=== PATIENT | female | born 1980 | race Caucasian/White ===

== ENCOUNTER 2016-07-28 12:02 | Observation (INO) | payer OTHER ==
[2016-07-28] MEDS ORDERED: FAMOTIDINE 10 MG/ML 2ML VIAL ONE (13:54)
[2016-07-28] MEDS ORDERED: METHYLPRED SOD SUCCINATE 125 MG VIAL ONE (13:54)
[2016-07-28] MEDS ORDERED: DIPHENHYDRAMINE HCL 50 MG/1 ML VIAL ONE (13:54)
[2016-07-28] MEDS ORDERED: EPINEPHRINE 1 MG/ML 1ML AMP ONE (13:54)
[2016-07-28 14:07] LABS: ABSOLUTE NEUTROPHIL COUNT 8.5 K/mm3 (1.8-7.7); BASO % 0.3 % (0.2-1.0); EOS # 0.1 (0.0-0.5); EOS % 0.5 % (0.9-2.9); HEMATOCRIT 40.3 % (37.0-47.0); HEMOGLOBIN 13.8 gm/l (12.0-16.0); IMM NEUT # 0.1 K/mm3 (0-0.2); IMM NEUT% 0.5 % (0-1); LYMPH # 1.5 (1.0-4.8); LYMPH % 14.5 % (15-45); MEAN CORPUSCULAR HEMOGLOBIN 30.8 pg (27.0-31.0); MEAN CORPUSCULAR HGB CONC 34.2 g/dl (33.0-37.0); MEAN PLATELET VOLUME 9.3 fl (7.4-10.4); MONO # 0.3 (0.0-0.8); MONO % 2.9 % (4-12); NEUT % 81.3 % (43-75); PLATELET COUNT 231 K/mm3 (130-400); RED CELL DISTRIBUTION WIDTH 12.9 % (11.5-14.5)
[2016-07-28 14:27] LABS: ALB/GLOB RATIO 1.5 (>1.0); ALBUMIN 4.4 gm/dL (3.5-5.7); CALCIUM 9.2 mg/dL (8.6-10.3)
[2016-07-28] MEDS ORDERED: LACTATED RINGERS 1,000 ML ONE (14:46)
--- NOTE | 2016-07-28 14:52 | RAD ---
Exam: Two-view chest COMPARISON: None INDICATION: Cough and congestion. Vomiting. FINDINGS: PA and lateral views of the chest were obtained. Cardiac silhouette is within normal limits. Lungs are well-inflated. Subtle asymmetric opacity projects within the right upper lobe which is felt to be related to the first rib and. There is no focal airspace disease or pleural effusion. Bones of the chest wall within normal limits. Stent and possible embolization coils are noted within the upper abdomen. IMPRESSION: No acute pulmonary process.
[2016-07-28 15:35] VITALS: BMI 23.3
[2016-07-28] MEDS ORDERED: MAGNESIUM HYDROXIDE 30 ML UDCUP PO PRN (17:39)
[2016-07-28] MEDS ORDERED: SODIUM CHLORIDE 0.9% 100 ML IV PRN (17:39)
[2016-07-28] MEDS ORDERED: ACETAMINOPHEN 325 MG TABLET PO PRN (17:39)
[2016-07-28] MEDS ORDERED: BISACODYL 10 MG SUP PR PRN (17:39)
[2016-07-28] MEDS ORDERED: MENTHOL/CETYLPYRD 1 EACH LOZENGE PO PRN (17:39)
[2016-07-28] MEDS ORDERED: BISACODYL 5 MG TABLET.EC PO PRN (17:39)
[2016-07-28] MEDS ORDERED: BLISTEX LIPSTICK 1 EACH TP PRN (17:39)
[2016-07-28] MEDS ORDERED: ONDANSETRON 4 MG/2ML 2 ML VIAL IV PRN (17:44)
[2016-07-28] MEDS ORDERED: SODIUM CHLORIDE 0.9% 1,000 ML IV SCH (17:45)
[2016-07-28] MEDS ORDERED: PUMP TUBING ONE (17:55)
--- NOTE | 2016-07-28 18:30 | US ---
ABDOMINAL ULTRASOUND HISTORY: Vomiting, history of renal artery stenting Transabdominal sonography was performed. COMPARISON: None. FINDINGS: LIVER: 14.1 cm cm in length. No focal lesions noted. GALLBLADDER: 8.8 cm in length, wall thickness 1.8 mm. No stones or sludge. COMMON BILE DUCT: 3 mm in maximal caliber. PANCREAS: Limited evaluation of pancreatic tail. Minimal prominence of pancreatic duct. SPLEEN: No focal lesions. Volume of 250 cc. KIDNEYS: 11.5 cm in length on the right, 10.5 cm in length on the left. No collecting system dilatation noted. AORTA: 2.2 cm in maximal caliber. INFERIOR VENA CAVA: Patent. FREE FLUID: None. IMPRESSION: Limited evaluation of the pancreas, minimal prominence of pancreatic duct. Otherwise unremarkable abdominal ultrasound. Specifically, normal appearance of the gallbladder. No ascites. A voicemail message was left for Dr. Palomino of the hospitalist clinical service on 07/28/2016 1825 hours.
[2016-07-28] MEDS: D5 1/2NS with 20 mEq KCL 1,000 ML IV SCH (19:15)
[2016-07-28 19:26] LABS: LIPASE < 3 U/L (11-82)
[2016-07-28 19:46] LABS: URINE BILIRUBIN NEGATIVE (NEGATIVE); URINE BLOOD NEGATIVE (NEGATIVE); URINE GLUCOSE (UA) NEGATIVE (NEGATIVE); URINE LEUKOCYTE ESTERASE NEGATIVE (NEGATIVE); URINE NITRITE NEGATIVE (NEGATIVE); URINE PROTEIN NEGATIVE (NEGATIVE); URINE UROBILINOGEN NORMAL (0-1 mg/dl)
[2016-07-28 19:49] LABS: URINE APPEARANCE CLEAR; URINE COLOR YELLOW
[2016-07-28 19:54] LABS: URINE BACTERIA 0; URINE EPITHELIAL CELLS 0 /hpf; URINE RBC 0 /hpf; URINE WBC 0-2 /hpf
[2016-07-28] MEDS ORDERED: DIPHENHYDRAMINE HCL 50 MG/1 ML VIAL IV PRN (20:00)
[2016-07-28] MEDS: DOCUSATE SODIUM 100 MG CAPSULE PO SCH (21:08)
[2016-07-28] MEDS ORDERED: FAMOTIDINE 10 MG/ML 2ML VIAL IV SCH (23:00)
[2016-07-29] MEDS: D5 1/2NS with 20 mEq KCL 1,000 ML IV SCH (02:58)
[2016-07-29 06:45] LABS: ABSOLUTE NEUTROPHIL COUNT 11.1 K/mm3 (1.8-7.7); BASO % 0.2 % (0.2-1.0); EOS % 0.1 % (0.9-2.9); HEMATOCRIT 36.1 % (37.0-47.0); HEMOGLOBIN 12.3 gm/l (12.0-16.0); IMM NEUT # 0.1 K/mm3 (0-0.2); IMM NEUT% 0.5 % (0-1); LYMPH # 2.6 (1.0-4.8); LYMPH % 17.7 % (15-45); MEAN CELL VOLUME 89.6 fl (81.0-99.0); MEAN CORPUSCULAR HEMOGLOBIN 30.5 pg (27.0-31.0); MEAN CORPUSCULAR HGB CONC 34.1 g/dl (33.0-37.0); MEAN PLATELET VOLUME 9.8 fl (7.4-10.4); MONO # 0.8 (0.0-0.8); MONO % 5.8 % (4-12); NEUT % 75.7 % (43-75); PLATELET COUNT 228 K/mm3 (130-400); RED CELL DISTRIBUTION WIDTH 12.7 % (11.5-14.5)
[2016-07-29 07:01] LABS: ALB/GLOB RATIO 1.5 (>1.0); ALBUMIN 3.9 gm/dL (3.5-5.7); CALCIUM 8.9 mg/dL (8.6-10.3)
[2016-07-29 07:16] VITALS: BP 115/72
--- NOTE | 2016-07-29 07:57 | PDOC43 ---
- Subjective Chief Complaint: Vomiting Patient reports no further vomiting. Ate dinner last night, did fine. No abdominal pain. No respiratory c/o. No itching, other sx. - Objective Vital Signs Temperature 98.9 F 07/29/16 07:16 Pulse Rate 98 07/29/16 07:16 Respiratory Rate 12 07/29/16 07:16 Blood Pressure 115/72 07/29/16 07:16 O2 Saturation by Pulse Oximetry 96 07/29/16 07:16 Oxygen Delivery Method Room Air Oxygen Flow Rate 0 Vital Signs Last 12 Hours Temp Pulse Resp BP Pulse Ox 07/29/16 07:16 98.9 F 98 12 115/72 96 07/29/16 03:00 97.8 F 92 12 129/77 98 07/28/16 23:00 98.2 F 95 16 119/80 99 Intake and Output 07/27/16 07/28/16 07/29/16 23:59 23:59 23:59 Intake Total 1000 3013 Output Total 1675 750 Balance -675 2263 General: Alert, Cooperative, Other (Disappointed about result of U/S suggesting miscarriage) HEENT: Atraumatic Lungs: Clear to Auscultation Bilaterally, Normal Air Movement Cardiovascular: Regular Rate and Rhythm Abdomen: Soft, Normal Bowel Sounds, Non-Distended, No Tenderness, No Rebounding , No Involuntary Guarding, No Distention Extremities: No Edema Skin: Normal Color Neurological: Normal Speech Psych/Mental Status: Other (Sl tearful about suspected miscarriage.) Laboratory 07/29/16 05:19 07/29/16 05:19 07/29/16 05:19 RBC 4.03 L Estimated GFR 113 H Laboratory Tests 07/28/16 07/29/16 13:50 05:19 Beta HCG, Qual Positive Beta HCG, Quant Pending Current Medications: Current meds reviewed in EMR. Active Medications Acetaminophen (Tylenol) 650 mg PO Q6H PRN PRN Reason: Pain or Temperature > 100.5 F Benzocaine/Menthol (Cepacol) 1 each PO PRN PRN PRN Reason: Sore Throat Bisacodyl (Dulcolax) 10 mg MD DAILY PRN PRN Reason: Constipation Bisacodyl (Dulcolax) 5 mg PO DAILY PRN PRN Reason: Constipation Diphenhydramine HCl (Benadryl) 50 mg IV Q6H PRN PRN Reason: Itching Docusate Sodium (Colace) 100 mg PO BID [facility] Last Admin: 07/28/16 21:08 Dose: 100 mg Famotidine (Pepcid) 20 mg IV Q12H [facility] Last Admin: 07/29/16 00:58 Dose: 20 mg Potassium Chloride/Dextrose/Sod Cl (D51/2ns With 20 Meq Kcl) 1,000 mls @ 125 mls/hr IV .Q8H [facility] Last Admin: 07/29/16 02:58 Dose: 125 mls/hr Sodium Chloride (Sodium Chloride 0.9%) 100 mls @ 25 mls/hr IV PRN PRN PRN Reason: Flush Magnesium Hydroxide (Milk Of Magnesia) 30 ml PO DAILY PRN PRN Reason: Constipation Ondansetron HCl (Zofran) 4 mg IV Q4H PRN PRN Reason: Nausea/Vomiting Petrolatum/Paraffin/Mineral Oil (Blistex) 1 each TP PRN PRN PRN Reason: Dry and/or chapped lips Sodium Chloride (Normal Saline 10ml Flush) 10 ml IV Q8HR [facility] Last Admin: 07/29/16 04:39 Dose: Not Given Sodium Chloride (Normal Saline 10ml Flush) 10 ml IV PRN PRN Sodium Chloride (Normal Saline 10ml Flush) 10 - 50 ml IV PRN PRN PRN Reason: IV Flush - Problems: Assessment/Plan (1) Vomiting Qualifiers: Vomiting type: bilious vomiting Nausea presence: with nausea Qualifier Code: (R11.14) Bilious vomiting Status: AcuteAssessment/Plan: Suspect cause was related to spontaneous miscarriage. Now reported improved. Lab not remarkable; elevated WBC suspect due to steroid administration in ED Amylase, lipase, LFTs, U/S, UA unrem +HCG may be a factor (2) Hypertension Qualifiers: Hypertension type: renovascular hypertension Qualifier Code: (I15.0) Renovascular hypertension Status: ChronicAssessment/Plan: Stable, BP quite good today. (3) Renal artery stenosis, morongo Status: ChronicAssessment/Plan: stented. U/S did not show significant abnormality. UA unrem. (4) Ulcerative colitis Qualifiers: Ulcerative colitis location: unspecified ulcerative colitis location Digestive disease complication type: without complication Qualifier Code: ( K51.90) Ulcerative colitis, unspecified, without complications Status: ChronicAssessment/Plan: Reported controlled on Humira, mesalamine. (5) Elevated serum hCG Status: AcuteAssessment/Plan: Noted, Pelvic u/s result most consistent with miscarriage, no intrauterine gestational sac seen. Quant HCG pending this am, discussed follow up HCG in 48 hrs; she reports she will be back in [place] then. Discussed seeking medical attention if having abdominal pain, severe bleeding. VTE Prophylaxis Contraindications: Drug treatment not indicated Disposition: Anticipate return to home.
[2016-07-29] MEDS: DOCUSATE SODIUM 100 MG CAPSULE PO SCH (08:14)
--- NOTE | 2016-07-29 08:45 | US ---
OB ULTRASOUND LESS THAN 14 WEEKS HISTORY: Positive beta hCG, vaginal bleeding, uncertain dates. 4 weeks 4 days by last menstrual period. Transabdominal and transvaginal obstetric ultrasound was performed. FINDINGS: INTRAUTERINE GESTATION: None identified. ENDOMETRIAL THICKNESS: 6 mm. Echogenic foci with minor shadowing measuring up to 6 mm in size, perhaps related to dystrophic calcifications. UTERUS: 7.5 x 5.2 x 3.0 cm. RIGHT OVARY: 3.5 x 2.4 x 1.9 cm. LEFT OVARY: 3.2 x 2.7 x 1.7 cm. FOCAL ADNEXAL LESIONS: Hypoechoic complex cystic lesion of the right ovary, 1.3 cm in size OVARIAN BLOOD FLOW: Documented bilaterally. FREE FLUID: Minor right adnexal free fluid. IMPRESSION: 1. Intrauterine gestation is not identified; considerations include early intrauterine gestation in spontaneous . Ectopic is not excluded. Recommend follow-up assessment with imaging and/or beta hCG evaluation. 2. Suspect 1.3 cm hemorrhagic cyst of the right ovary. Minor adjacent free fluid. 3. Echogenic foci of the endometrium may reflect dystrophic calcifications. Preliminary report relayed to the Emergency Medicine medical service by Dr. Villegas on 07/28/2016 at 2347 hours.
--- NOTE | 2016-07-29 09:18 | HP ---
LANDY SCHNEIDER [id number] DATE OF ADMISSION: July 28, 2016 CHIEF COMPLAINT: Vomiting. HISTORY OF PRESENT ILLNESS: The patient is a 36-year-old female with a history of renovascular hypertension who has developed an upper respiratory infection in the last week. She had been treating herself with guaifenesin and more recently took a dose of oxycodone last night due to severe menstrual cramps but she developed vomiting at 8 a.m. the day of admission after having a poor night of sleep. She noted some itching and sweating and was not getting better despite the vomiting, so came in to the emergency department. She was noted to have some facial swelling but no respiratory compromise. She also noted some speckly rash on her face, neck and upper chest attributing this to vomiting hard. Her emesis had some bile but no blood noted. She has had no diarrhea. She has had some chills but her temperature has been normal. She had no tongue swelling. Her only respiratory complaint was her regular cold symptoms she has been having for the last week. She notes a little bit of difficulty taking a deep breath, but this has not changed over the last week. She received epinephrine, solumedrol, famotidine and Benadryl in the emergency department and has not had any vomiting now in the last five hours. Patient states the itching is resolved. She notes being a little sleepy from the medicines. Symptoms are different from the previous time when she had renal artery infarction. PAST MEDICAL HISTORY: 1. 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 She states her last CT was two weeks ago and was okay. 2. She has not had any abdominal pain similar to those times. 3. She has a history of hypertension and has been on lisinopril but stopped two or three weeks ago. 4. She has a history of ulcerative colitis and has been on Humira and mesalamine but does not think the Humira is helping any. Her last dose was almost two weeks ago. PAST SURGICAL HISTORY: 1. Renal artery stent placement, 2015. 2. She has had a colonoscopy last May. ALLERGIES: NO KNOWN DRUG ALLERGIES. CURRENT MEDICATIONS: She takes: 1. Humira 80 mg every two weeks in a tapering dose. 2. Mesalamine. She takes a suppository twice daily. 3. She takes a vitamin. 4. She has also been taking Dayquil, Nyquil and oxycodone for heavy menses. She always tolerated the oxycodone fine before. Her last dose was 11 p.m. and her vomiting did not start until 8 a.m. SOCIAL HISTORY: She has a history of smoking but quit April 25, 2016. Alcohol, she reports four or five drinks every two weeks. She is visiting from [place] after her grandmother passed on hoping to help her mom. She has a boyfriend. She has a 19-year-old daughter who lives separately. She does not have a mu-ism affiliation. Hobbies include reading. 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 FAMILY HISTORY: Father is 61. He has a history of cancer involving the throat and melanomas. Mom is 62 and has hypertension and asthma. Daughter has no major medical problems. REVIEW OF SYSTEMS: Eyes have been okay. Ears have been somewhat plugged recently attributed to her cold. Nose has been a plugged recently. Mouth has been a little dry. Teeth are okay. Neck is okay. Lungs, she has had some cough which has not been productive. Her chest x-ray in the emergency department was unremarkable. She has had no heart complaints. She had the vomiting noted but no pain like before when she had her kidney problem. She has had no diarrhea. Last bowel movement was a couple of days ago. She has had no abdominal operations. No urinary complaints. Last menstrual period started yesterday. Legs have been okay. Arms have been okay. Rash, she states not at this time but most of the rash she has at this time is on the trunk and face and is not particularly itchy. No stroke history. Mood has been okay. She does not have an advanced directive. She has a little bit of headache but her blood pressure has not been particularly elevated. She has not been on any antiinflammatories. She has had no respiratory difficulties, and she states her facial swelling was mostly in the cheeks as if somebody had taken prednisone. PHYSICAL EXAMINATION: VITAL SIGNS: Blood pressure is 152/94, pulse 97, respirations 20, 100% saturation on room air, temperature 98.8. HEENT: Normocephalic, atraumatic. Eyes are unremarkable. Ears are normal. Tympanic membranes are unremarkable without effusion or erythema. Nose is normal, no discharge is evident. Septum intact and unremarkable. Mouth is normal, dentition very good. No significant swelling is noted. NECK: Is unremarkable other than a scattered petechial rash noted on the neck and upper chest consistent with her history of straining hard while vomiting. CHEST: Lungs are clear to auscultation bilaterally. CARDIOVASCULAR: Regular rate and rhythm to slightly tachycardiac but without a murmur. ABDOMEN: Is soft, nontender, nondistended. Bowel sounds are normal. There is no rebound, no guarding, no masses, no tenderness. Small tattoo is noted on the left lower quadrant. There is no scarring noted. Negative Parra's sign noted. BREAST: Exam is deferred. GENITOURINARY: Exam is deferred. EXTREMITIES: No clubbing, cyanosis or edema. No rashes noted, no ulcerations noted. Pulses are good throughout. Color is good. NEUROLOGIC: Cranial nerves are intact. Speech is clear, and she answers appropriately. SKIN: With scattered petechiae noted in the neck and upper chest. LABORATORY STUDIES: White count 10.5, hemoglobin 13.8, platelets 231, sodium 134, potassium 3.9, chloride 104, CO2 25, BUN 13, creatinine 0.8, glucose 101, AST 16, ALT 17, alkaline phosphatase 54, albumin 4.4, globulin 2.9. DIAGNOSTIC IMAGING STUDIES: Chest x-ray is read as no acute cardiopulmonary disease. Stents and possible embolization coils are noted in the upper abdomen. ASSESSMENT AND PLAN: 1. Vomiting. Etiology initially thought to be anaphylaxis but she does not sound particularly urticarial but certainly is petechial at this time. Mucosa appears to be normal, no swelling, no respiratory complaints, no hypotension noted anytime in the emergency room. We will be checking abdominal ultrasound. We will check lipase, amylase, troponin and check a urinalysis. We will observe tonight and reassess in the morning. 2. History of renal artery stenosis with stenting. We will be checking an abdominal ultrasound and monitor blood pressure. She could be a candidate for labetalol although this might be a concern if we were going to use additional epinephrine for her, so may consider alternative medications if systolic blood pressure goes above 160. 3. History of ulcerative colitis reported to be stable. Exam was not suggestive of any significant symptoms, no obstruction. Patient not sure about effect of Humira and now is about two weeks out from her last dose. 4. Hypertension with renovascular component. Previously had been on lisinopril but has been off for the last several weeks so this would be less likely as a contributor to anaphylaxis. Could consider labetalol if is a concern or consider other calcium channel mendy if further adrenaline thought to be needed, although this would seem unlikely in the setting of elevated blood pressures. 5. History of smoking. Quit since April. Congratulated on this. 6. Consideration for . We will be checking an HCG. 7. Venous thrombosis prophylaxis, anticipate low risk ambulatory patient. 8. Code status: FULL CODE. Cc: Karena Suarez M.D. Dave Merino M.D. Dave Lopez M.D.
--- NOTE | 2016-07-29 15:47 | DS ---
LANDY SCHNEIDER [id number] DATE OF ADMISSION: July 28, 2016 DATE OF DISCHARGE: July 29, 2016 DISCHARGE DIAGNOSES: Are: 1. Episode of vomiting suspect related to very early miscarriage. 2. Previous left kidney infarction with a history of renal artery stenting. 3. History of ulcerative colitis on Humira and mesalamine. 4. History of hypertension. 5. Recent upper respiratory illness. REASON FOR ADMISSION: The patient is 36-year-old female who has a history of renovascular hypertension and had recently stopped her lisinopril with an eye toward contemplating . She had noted she was late for her period approximately five or six days prior to admission but had taken a home test that was negative. She had then come down to [place] to help her mom with care for her grandmother's arrangements and noted that she then started having some spotting and felt like she was going to have her period although it was more severe than usual. She had taken an oxycodone left over from her previous medical procedures and some guaifenesin to treat upper respiratory illness and had gone to bed. She had not taken any antiinflammatories. She woke up about 8:00 in the morning and noted that she was having vomiting. She denies abdominal pain and had vomited so hard, she developed a rash on her upper torso. She had also felt some feeling that her face was full and she presented to the emergency department here. On admission, her white count was 10.5, hemoglobin 13.8, platelets 231. Chemistry profile, sodium 134, potassium 3.9, CO2 25, BUN 13, creatinine 0.8, glucose 101. Liver enzymes were normal. Troponin less than 0.01, amylase 28, lipase less than 3. Her qualitative HCG was positive. She had a chest x-ray performed which was read as normal. In the emergency room with the rash and feeling of swelling, she was initially thought to possibly have anaphylaxis although her blood pressures in the emergency room were not low but rather somewhat elevated being 152/94 close to the time of admission. She was referred to the hospitalist service after receiving IV steroids, epinephrine, Benadryl and famotidine. Case was reviewed with the hospitalist and on exam the rash appeared to be petechial rather than urticarial and was not particularly itchy. She continued to have normal to somewhat elevated blood pressures and so other causes for vomiting were sought. She underwent upper abdominal ultrasound which was read as showing limited evaluation of the pancreas, minimal prominence of the pancreatic duct, otherwise normal abdominal ultrasound, specifically normal appearance of the gallbladder, no ascites. Her HCG returned positive, so a pelvic ultrasound was ordered which showed intrauterine gestation not identified. Considerations include early intrauterine gestation in spontaneous , ectopic is not excluded. Recommend followup assessment imaging or beta HCG evaluation. Suspect 1.3 cm hemorrhagic cyst at the right ovary, minor adjacent free fluid, echogenic foci of the endometrium may reflect dystrophic calcification. Patient received IV fluids and famotidine throughout the night. She was able to eat without difficulty once she was admitted to the floor and had no further nausea or vomiting and had no abdominal pain. Her vital signs remained stable and blood pressure actually gradually improved. She remained afebrile. Heart rate remained in the upper 80s to mid 90s. Saturations remained normal. Her followup laboratory showed a mildly elevated white count at 14.6 attributed to steroids administered in the emergency room. Her hemoglobin is 12.3, platelets 228. Chemistry profile remained unremarkable and glucose went up somewhat to 125 also attributed to steroids. Her troponin remained normal as well. She had a quantitative HCG performed which was read as being less than 1 and this appeared remarkable so the quantitative HCG was run on her initial presentation blood which also showed a less than 1 but on further discussion with lab, her HCG was 0.12 yesterday and 0.06 today which could be compatible with completing miscarriage. She was feeling well, able to eat, ambulate and eager for discharge on July 29, 2016. So she is anticipated to be discharged to home. DISPOSITION: Home. FOLLOWUP: She is asked to follow up with her primary care doctor about discussion if she wishes to do an additional HCG test, and she is to seek medical attention sooner if having abdominal pain, severe bleeding or other change in status. She is also to follow up with her primary care doctor regarding followup on hypertension. Cc: Karena Suarez M.D. Dave Merino M.D. Dave Lopez M.D.
== END 2016-07-29 10:09 | disposition home or self-care (01) ==
LOC: ED 12:02 → ICU 15:02 → INTOOBSV 15:02
PROVIDERS: ADMIT Family Medicine; ATTEND Family Medicine
DX: R11.10 Vomiting, unspecified (principal); I10 Essential (primary) hypertension; I70.1 Atherosclerosis of renal artery; K51.90 Ulcerative colitis, unspecified, without complications; Z87.891 Personal history of nicotine dependence; J06.9 Acute upper respiratory infection, unspecified